=== PATIENT | female | born 2005 | race Hispanic/Latino ===

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

== ENCOUNTER 2024-05-10 22:28 | Emergency (ER) | payer BC ==
[~2024-05-10] VITALS: Ht 160 cm; Wt 113.0 kg
[~2024-05-10 22:28] MED LIST changes: +BENADRYL25 M1 PO; +MEDDOSEPAK PO; +PEPCID20 MG PO
[2024-05-10] MEDS ORDERED: ACETAMINOPHEN 500 MG TAB PO ONE (22:50)
[2024-05-10] MEDS ORDERED: TAM75CAP PO (23:33)
[2024-05-10] MEDS ORDERED: OSELTAMIVIR PHOSPHATE 75 MG/TAB CAP PO ONE (23:35)
[2024-05-10 23:45] VITALS: BP 141/86
== END 2024-05-10 23:45 | disposition home or self-care (01) | DRG 195 ==
LOC: ED 22:28
DX: J10.1 Influenza due to other identified influenza virus with other respiratory manifestations (principal); Z20.822 Contact with and (suspected) exposure to COVID-19